=== PATIENT | female | born 1955 | race Caucasian/White ===

== ENCOUNTER 2019-12-02 09:32 | Emergency (ER) | payer BC, SELFPAY ==
[2019-12-02 09:37] VITALS: BP 188/99; PULSE 64; RESP 20; TEMP 36.7; O2SAT 98
[2019-12-02 09:43] LABS: Bilirubin Negative (Negative); Blood Negative (Negative); Clarity Clear (Clear); Glucose 100 mg/dL (Negative); Ketones Negative (Negative); Leukocyte Esterase Negative (Negative); Nitrite Positive (Negative); Specific Gravity 1.025 (1.005-1.025)
--- NOTE | 2019-12-02 09:43 | W.ED.GENAD ---
Discharge Plan Disposition Patient Disposition: HOME Condition: Stable Discharge Details Chief Complaint: FlankPain Clinical Impression: Kidney stone on right side Primary Care Provider: Shalonda,Local ED Provider: Nasima Phelan Home Meds and New Rx's Prescriptions: New ondansetron HCl [Zofran] 4 mg tablet 4 mg PO Q8H PRN (Reason: nausea and vomiting) Qty: 14 RF: 0 tamsulosin [Flomax] 0.4 mg capsule 0.4 mg PO DAILY Qty: 14 RF: 0 ibuprofen 800 mg tablet 800 mg PO TID PRN (Reason: pain) Qty: 20 RF: 0 Continued atorvastatin 80 mg Tablet 80 mg PO DAILY RF: 0 aspirin [Aspir-81] 81 mg Tablet,Delayed Release (Dr/Ec) 81 mg PO DAILY RF: 0 metoprolol tartrate 25 mg Tablet 25 mg PO BID RF: 0 Discharge Instructions Instructions: Kidney Stones (ED) Additional Instructions: Strain all urine. Follow up with Urology in 3-5 days for an appointment. Follow up with primary care provider in 3-5 days. Return to ED sooner if any worsening or concerns. Take medications as directed. Referrals: Mikie Beyer MD [ [facility] STAFF PHYSICIAN] - Medical Decision Making 1023: Patient re-evaluation, pain down to 6/10. Reports nausea improved. Patient being transported to CT at this time. 1049: Spoke with Radiologist Dr. Cintron, CT result as noted below. EXAM: CT RENAL COLIC WO CLINICAL HISTORY: right flank pain TECHNIQUE: COMPARISON: No exams were available for comparison FINDINGS: CT examination of the abdomen and pelvis was performed without contrast administration. Images obtained through the lung bases are unremarkable. Visualized portions of the liver appear intact. Spleen is unremarkable by noncontrast criteria as are the gallbladder and bile ducts. Pancreas is unremarkable. Abdominal aorta is of normal diameter. No significant abdominal wall hernia seen. No abdominal or pelvic adenopathy. Appendix is normal. No evidence of diverticulitis or bowel obstruction. Left kidney and ureter appear normal. No obstruction or calcification. On the right there is moderate hydronephrosis and hydroureter to the level of the ureterovesical junction where there is an apparent intramural 1-2 millimeter in diameter obstructing calculus. Urinary bladder is essentially empty Radio Recorder structures grossly unremarkable as visualized. IMPRESSION: Obstructing 1-2 millimeter in diameter ureterovesical junction calculus on the right. No additional urinary tract calcification. [id number]: Total DLP = 0.00 mGy-cm Ordered By: Nasima Phelan CC: Discussed CT results and home care with patient, verbalized understanding. Discussed prescriptions for Flomax and Zofran and ibuprofen. Verbalized understanding. Patient remained hemodynamically stable throughout stay. HPI General Date/Time Provider Initiated Documentation: 12/02/19 09:37. History of Present Illness 64 year old F presents to the emergency department with the chief complaint of Flank pain, described as moderate, with intensity rated at 8. Quality is described as stabbing, and is localized to the back (Right flank). Patient flank. Patient started experiencing this hour(s) (5) and it has been colicky. No relieving factors improve symptom(s), Patient notes fever/chills (chills) and nausea/vomiting. Patient did receive the following treatments prior to arrival, none Related Data Home Medications Medication Instructions Recorded Confirmed aspirin [Aspir-81] 81 mg PO DAILY 12/02/19 12/02/19 atorvastatin 80 mg PO DAILY 12/02/19 12/02/19 ibuprofen 800 mg PO TID PRN #20 tab 12/02/19 metoprolol tartrate 25 mg PO BID 12/02/19 12/02/19 ondansetron HCl [Zofran] 4 mg PO Q8H PRN #14 tab 12/02/19 tamsulosin [Flomax] 0.4 mg PO DAILY #14 cap 12/02/19 Previous Rx's Medication Instructions Recorded ibuprofen 800 mg PO TID PRN #20 tab 12/02/19 ondansetron HCl [Zofran] 4 mg PO Q8H PRN #14 tab 12/02/19 tamsulosin [Flomax] 0.4 mg PO DAILY #14 cap 12/02/19 Allergies Allergy/AdvReac Type Severity Reaction Status Date / Time No Known Allergies Allergy Unverified 12/02/19 09:42 General Stated Complaint: FlankPain SARITHA: 3 Review of Systems All systems reviewed & are unremarkable except as noted in HPI and below Constitutional Constitutional: Reports chills Respiratory Respiratory: Denies cough Gastrointestinal Gastrointestinal: Reports abdominal pain (mild RLQ), Denies diarrhea, Reports nausea and Reports vomiting Genitourinary Genitourinary: Denies dysuria and Reports flank pain PFSH Social History Smoking/Tobacco Use Status: Current every day Drug use: Never Substance use type: does not use Do you feel safe at home: Yes Do you feel safe in your relationship?: Yes Exam Const General: cooperative, healthy appearing and in distress (Uncomfortable) moderate Nutritional Appearance: average body habitus and well nourished Orientation: alert, awake and oriented x3 Chest Chest: normal inspection of the chest and no tenderness Resp Effort & Inspection: normal respiratory effort and able to speak in complete sentences Auscultation: clear to auscultation bilaterally, no rhonchi and no wheezes Cardio Rate: regular rate Rhythm: regular rhythm Heart Sounds: S1 normal and S2 normal GI Inspection: normal to inspection Palpation: soft, not firm, no guarding and tender suprapubicly General: CVA tenderness on the right Neuro General: alert, awake and oriented x3 Speech: speech normal Course Vital Signs Vital signs: Vital Signs Temperature 36.7 C 12/02/19 09:37 Pulse 64 12/02/19 09:37 Respiratory Rate 12/02/19 09:37 Blood Pressure 188/99 H 12/02/19 09:37 Pulse Oximetry 98 12/02/19 09:37 Temperature 36.7 C 12/02/19 09:37 Temperature Source Temporal Artery Scan 12/02/19 09:37 Pulse 64 12/02/19 09:37 Respiratory Rate 12/02/19 09:37 Blood Pressure 188/99 H 12/02/19 09:37 Blood Pressure Position Supine 12/02/19 09:37 Pulse Oximetry 98 12/02/19 09:37 Oxygen Delivery Method Room Air 12/02/19 09:37 Oxygen Flow Rate 0 12/02/19 09:37 Pain Level 8 12/02/19 09:37
[2019-12-02] MEDS: Ketorolac 30 MG/ML VIAL IVP (09:53)
[2019-12-02] MEDS: Normal Saline Flush 10 ML SYR IVP (09:53)
[2019-12-02] MEDS: Ondansetron 4 MG/2 ML VIAL IVP (09:53)
[2019-12-02] MEDS: Lactated Ringers 1,000 ML 200 ML IV (09:53)
[2019-12-02 09:54] LABS: Abs Immature Grans 0.03 k/cumm (0.0-0.09); Absolute Lymphocyte Count 1.62 k/cumm (1.2-3.4); Absolute Monocyte Count 0.42 k/cumm (0.11-0.7); Absolute Neutrophil Count 11.97 k/cumm (1.2-6.7); Basophils % 0.4; Eosinophils % 0.1; HCT 46.2 % (36.0-46.0); HGB 15.6 g/dL (12.0-15.5); Immature Grans % 0.2 %; Lymphocytes % 11.5; Mean Corp. HGB Concentration 33.8 g/dL (32.0-36.0); Mean Corpuscular Hemoglobin 30.1 pg (27.0-33.0); Mean Platelet Volume 8.9 fL (8.0-11.0); Neutrophils % 84.8; Platelet Count 294 x1000/uL (130-400); RBC 5.19 m/cumm (4.00-5.20); RBC Distribution Width 13.1 % (11.7-14.6); White Blood Cell Count 14.11 k/cumm (4.4-10.8)
[2019-12-02 09:55] LABS: Bacteria Rare HPF (Negative); C & S Indicated? Yes; Casts 0-2 Hyaline LPF (Negative); Crystals Negative HPF (Negative); Epithelial Cells Rare HPF (Negative); Mucus Trace (Negative)
[2019-12-02 09:57] LABS: Absolute Basophil Count 0.06 k/cumm (0.0-0.2); Absolute Eosinophil Count 0.01 k/cumm (0.0-0.7)
[2019-12-02 10:10] LABS: ALT 28 U/L (14-59); AST 22 U/L (15-37); Alkaline Phosphatase 91 U/L (46-116); Anion Gap 9.9 mmol/L (3-11); BUN 19 mg/dL (7-18); Bilirubin, Total 0.4 mg/dL (0.2-1.0); CO2 27.1 mmol/L (21.0-32.0); CREATININE 0.88 mg/dL (0.55-1.02); Calcium 9.5 mg/dL (8.5-10.1); Chloride 104 mmol/L (98-107); Glucose 174 mg/dL (74-106); Sodium 141 mmol/L (136-145); Total Protein 8.1 g/dL (6.4-8.2)
--- NOTE | 2019-12-02 10:34 | DI.CT_ITS ---
EXAM: CT RENAL COLIC WO CLINICAL HISTORY: right flank pain TECHNIQUE: COMPARISON: No exams were available for comparison FINDINGS: CT examination of the abdomen and pelvis was performed without contrast administration. Images obtai den through the lung bases are unremarkable. Visualized portions of the liver appear intact. Spleen is unremarkable by noncontrast criteria as are the gallbladder and bile ducts. Pancreas is unremark able. Abdominal aorta is of normal diameter. No significant abdominal wall hernia seen. No abdomin al or pelvic adenopathy. Appendix is normal. No evidence of diverticulitis or bowel obstruction. Left kidney and ureter appear normal. No obstruction or calcification. On the right there is moderate hydronephrosis and hydroureter to the level of the ureterovesical junc tion where there is an apparent intramural 1-2 millimeter in diameter obstructing calculus. Urinary bladder is essentially empty Technical Document Writer structures grossly unremarkable as visualized. IMPRESSION: Obstructing 1-2 millimeter in diameter ureterovesical junction calculus on the right. No additional urinary tract calcification.
[2019-12-02 11:38] VITALS: BP 144/80; PULSE 92; TEMP 37; O2SAT 98
== END 2019-12-02 11:43 | disposition home or self-care (01) ==
PROVIDERS: Emergency Provider Registered Nurse Emergency; PCP Internal Medicine
DX: N13.2 Hydronephrosis with renal and ureteral calculous obstruction (principal); N13.4 Hydroureter
CPT/HCPCS: 36415; 80053; 87077; 96361; 96374; 96375; 99284; 74176; 81003; 81015; 85025; 87086; J1885; J2405

== ENCOUNTER 2021-09-29 13:56 | Emergency (ER) | payer MEDICARE, SELFPAY ==
[2021-09-29 14:02] VITALS: BP 165/95; PULSE 106; RESP 16; TEMP 36.7; O2SAT 96
--- NOTE | 2021-09-29 15:30 | RT.EKG_ITS ---
APPROVED REPORT Exam: Resting ECG Reason for Exam: left shoulder pain Patient Location: E HR:95 bpm ECG Measurements Heart Rate 95 AXIS VT 150 P 50 QRSd 92 QRS 18 QT 349 T 56 QTc 440 Conclusion Sinus rhythm...normal P axis, V-rate 60- 99 Probable left atrial enlargement...P >50mS, <-0.10mV V1
--- NOTE | 2021-09-29 15:30 | DI.RAD_ITS ---
Exam(s) XR SHOULDER LT COMPLETE 2+V EXAM: XR SHOULDER LT COMPLETE 2+V CLINICAL HISTORY: left shoulder. TECHNIQUE: 2D digital imaging was performed. COMPARISON: No exams were available for comparison FINDINGS: No evidence of fracture or dislocation. No abnormal soft tissue calcifications. AC joint appears un remarkable. IMPRESSION: No significant radiograph findings in left shoulder. DATA REPOSITORY: RADIATION DOSE DELIVERED:
--- NOTE | 2021-09-29 16:34 | DI.VRAD_ITS ---
PROCEDURE INFORMATION: Exam: XR Left Shoulder Exam date and time: 09/29/2021 3:31 PM Age: 66 years old Clinical indication: Other: Left shoulder pain TECHNIQUE: Imaging protocol: XR Left shoulder. Views: 2 or more views. COMPARISON: No relevant prior studies available. FINDINGS: Bones/joints: Unremarkable for patient's age. Soft tissues: Unremarkable. IMPRESSION: No acute bony findings. If clinical symptoms persist recommend followup film in 7-10 days. Dictated and Authenticated by: Tina Florian MD. Ordering:EVELIN Jacobs MD
--- NOTE | 2021-09-29 16:53 | ED.GENADUL_ITS ---
Discharge Plan Disposition Patient Disposition: HOME Condition: Stable Discharge Details Clinical Impression: Acute pain of left shoulder Primary Care Provider: Colton Dan ED Provider: Arlene Sandoval Home Meds and New Rx's Prescriptions: New hydrocodone-acetaminophen 5-325 mg tablet 1 tab PO BID PRNQty: 7 RF: 0 Continued atorvastatin 80 mg Tablet 80 mg PO DAILY RF: 0 aspirin [Aspir-81] 81 mg Tablet,Delayed Release (Dr/Ec) 81 mg PO DAILY RF: 0 metoprolol tartrate 25 mg Tablet 25 mg PO BID RF: 0 ondansetron HCl [Zofran] 4 mg tablet 4 mg PO Q8H PRN (Reason: nausea and vomiting) Qty: 14 RF: 0 tamsulosin [Flomax] 0.4 mg capsule 0.4 mg PO DAILY Qty: 14 RF: 0 ibuprofen 800 mg tablet 800 mg PO TID PRN (Reason: pain) Qty: 20 RF: 0 Discharge Instructions Stand Alone Forms: Physical Therapy Referral Referrals: Colton Dan [Primary Care Provider] - Devin Alvarado MD [ [facility] STAFF PHYSICIAN] - Discharge Data Discharge Date/Time-TO BE ENTERED AT DEPARTURE: 09/29/21 17:09 Medical Decision Making Patient appears well, she has reproducible tenderness, x-ray does not show acute abnormality While this patient does have a cardiac history, she is having no chest pain or shortness of breath, her EKG is reassuring, and her exam is consistent with musculoskeletal pain Unfortunately patient was in the emergency room for an extended period of time given capacity issues of this hospital during - pandemic She became very frustrated at time of discharge asking why have you not performed an MRI I did relate to patient that this is not appropriate care for the emergency room, MRI is not a test that we typically performed in the emergency room for musculoskeletal complaints as there is no emergent intervention that would be done in the emergency room based on the results of these findings At time of reassessment she is stable for discharge home at this time She is made aware of she will need close outpatient follow-up, I have listed orthopedics, however she does reside in [place] so she may be best served by following up with her primary care physician for outpatient referral She is provided with a sling with precautions for frozen shoulder and this was discussed and patient expressed understanding I have supplied patient with 4 tablets of oxycodone which she may use sparingly, she is aware that the medication is addictive and she should not operate a vehicle 8 hours after taking this medication She is discharged home in stable condition with stable vitals, repeat pulse 92 There is no evidence of septic joint Low suspicion for cardiac referred pain given presentation and clinical exam findings today Medical Records Medical records reviewed: Yes I reviewed the patient's medical records. HPI General Mode of arrival: ambulatory . Date/Time Provider Initiated Documentation: 09/29/21 14:46 . Limitations to Documentation: no limitations . HPI Narrative: This 66-year-old female with past medical history of coronary artery disease presents with left shoulder pain which she has had for the past several months. She denies known injury to the affected area. She states that she had surgery on her right shoulder for similar pain several years ago. She states the pain is exacerbated with movement. Denies any fever or chills. Denies any chest pain or shortness of breath. Denies any associated sweating. Denies exertional pain. She states specifically moving the shoulder in any direction exacerbates comfort. She denies any radiation of pain or neck pain. She has been taking ice, Motrin, heat, and Tylenol without relief in her symptoms. She has not followed up with her doctor regarding the pain. Related Data Home Medications Medication Instructions Recorded Confirmed aspirin [Aspir-81] 81 mg PO DAILY 12/02/19 09/29/21 atorvastatin 80 mg PO DAILY 12/02/19 09/29/21 ibuprofen 800 mg PO TID PRN #20 tab 12/02/19 09/29/21 metoprolol tartrate 25 mg PO BID 12/02/19 09/29/21 ondansetron HCl [Zofran] 4 mg PO Q8H PRN #14 tab 12/02/19 09/29/21 tamsulosin [Flomax] 0.4 mg PO DAILY #14 cap 12/02/19 09/29/21 hydrocodone-acetaminophen 1 tab PO BID PRN #7 tab 09/29/21 Previous Rx's Medication Instructions Recorded ibuprofen 800 mg PO TID PRN #20 tab 12/02/19 ondansetron HCl [Zofran] 4 mg PO Q8H PRN #14 tab 12/02/19 tamsulosin [Flomax] 0.4 mg PO DAILY #14 cap 12/02/19 hydrocodone-acetaminophen 1 tab PO BID PRN #7 tab 09/29/21 Allergies Allergy/AdvReac Type Severity Reaction Status Date / Time No Known Allergies Allergy Unverified 09/29/21 14:07 General Stated Complaint: Orthopedic SARITHA: 4 Review of Systems All systems reviewed & are unremarkable except as noted in HPI and below PFSH Active Problem List (Updated 09/29/21 @ 16:52 by LYNN Cartwright) Acute pain of left shoulder (Acute) Social History Smoking/Tobacco Use Status: Current every day Tobacco Type: cigarettes Smoking risk assessment performed?: Yes Drug use: Never Substance use type: does not use Do you feel safe at home: Yes Do you feel safe in your relationship?: Yes Exam Const General: cooperative, comfortable and no acute distress HENMT Head: normal to inspection Neck Other: no midline tenderness Chest Chest: normal inspection of the chest Resp Effort & Inspection: normal respiratory effort Cardio Rate: regular rate Skin General skin exam: no rashes or lesions noted Neuro General: patient alert and patient oriented x3 Other: Strength of mentation intact distally Extrem Shoulder/upper arm images: 1. Reproducible tenderness, decreased abduction, supination, abduction Distal pulses intact Course Vital Signs Vital signs: Vital Signs Temperature 36.7 C 09/29/21 14:02 Pulse 106 H 09/29/21 14:02 Respiratory Rate 16 09/29/21 14:02 Blood Pressure 165/95 H 09/29/21 14:02 Pulse Oximetry 96 09/29/21 14:02 Temperature 36.7 C 09/29/21 14:02 Temperature Source Skin 09/29/21 14:02 Pulse 106 H 09/29/21 14:02 Respiratory Rate 16 09/29/21 14:02 Respiratory Effort Non-Labored 09/29/21 14:02 Blood Pressure 165/95 H 09/29/21 14:02 Blood Pressure Position Sitting 09/29/21 14:02 Pulse Oximetry 96 09/29/21 14:02 Oxygen Delivery Method Room Air 09/29/21 14:02 Oxygen Flow Rate 0 09/29/21 14:02 Pain Level 8 09/29/21 14:18
== END 2021-09-29 17:09 | disposition home or self-care (01) ==
PROVIDERS: Emergency Provider Physician Assistant; PCP Internal Medicine
DX: M25.512 Pain in left shoulder (principal)
CPT/HCPCS: 93005; 99284; 73030; 93010; 99283

== ENCOUNTER 2022-09-08 10:03 | Emergency (ER) | payer MEDICARE, SELFPAY ==
--- NOTE | 2022-09-08 10:00 | RT.EKG_ITS ---
APPROVED REPORT Exam: Resting ECG Reason for Exam: chest pain Patient Location: E HR:115 bpm ECG Measurements Heart Rate 115 AXIS MN 161 P 68 QRSd 80 QRS 4 QT 327 T 69 QTc 453 Conclusion Sinus tachycardia...rate> 99 Sinus. Normal axis. No STEMI. I have reviewed and interpreted ECG and agree with software generated interpretation.
[2022-09-08 10:07] VITALS: BP 154/71; PULSE 118; RESP 22; TEMP 36.5; O2SAT 95
--- NOTE | 2022-09-08 10:15 | DI.RAD_ITS ---
Exam(s) XR PORTABLE CHEST AP EXAM: XR PORTABLE CHEST AP CLINICAL HISTORY: R sided chest pain, r/o pneumothorax, acute dz TECHNIQUE: 2D digital imaging was performed of the chest. One image was obtained. An AP view was ob tained. COMPARISON: No exams were available for comparison FINDINGS: MEDIASTINUM: Normal. HEART: Normal. PULMONARY VASCULATURE: Normal. LUNGS: There is prominence of the right perihilar region. The left lung shows no focal consolidating infiltrates. PLEURAL SPACE: No pleural effusion or pneumothorax. BONE:Within normal limits for the patient's age. OTHER FINDINGS:Normal. IMPRESSION: Prominence of the right perihilar region. This may represent an infiltrate, but a central mass or ad enopathy cannot be excluded. CT scan of the chest with contrast is recommended for further evaluatio n. DATA REPOSITORY: RADIATION DOSE DELIVERED:
[2022-09-08 10:18] VITALS: RESP 23
--- NOTE | 2022-09-08 10:20 | ED.GENADUL_ITS ---
Discharge Plan Disposition Patient Disposition: HOME Condition: Improving Discharge Details Clinical Impression: Mass of right lung Primary Care Provider: Colton Dan ED Provider: Kimi Jo Home Meds and New Rx's Prescriptions: New oxycodone 5 mg tablet 5 mg PO Q6H PRN (Reason: pain) Qty: 10 0RF Continued atorvastatin 80 mg Tablet 80 mg PO DAILY aspirin [Aspir-81] 81 mg Tablet,Delayed Release (Dr/Ec) 81 mg PO DAILY metoprolol tartrate 25 mg Tablet 25 mg PO BID ondansetron HCl [Zofran] 4 mg tablet 4 mg PO Q8H PRN (Reason: nausea and vomiting) Qty: 14 0RF tamsulosin [Flomax] 0.4 mg capsule 0.4 mg PO DAILY Qty: 14 0RF ibuprofen 800 mg tablet 800 mg PO TID PRN (Reason: pain) Qty: 20 0RF hydrocodone-acetaminophen 5-325 mg tablet 1 tab PO BID PRNQty: 7 0RF No Action Stiolto Respimat 2.5-2.5 mcg/actuation mist 2 puff inhalation DAILY Qty: 4 0RF albuterol sulfate 90 mcg/actuation HFA aerosol inhaler 2 puff inhalation Q6H PRN (Reason: shortness of breath or wheezing) Qty: 8.5 0RF Discharge Instructions Instructions: Needle Biopsy (DC) Additional Instructions: Your CT scan imaging today revealed that you have a mass in your right lung. Medications have been sent electronically to your pharmacy from the pulmonoligist Dr. Manzo. A prescription for pain medication has been also sent electronically to your pharmacy to take as needed and directed for pain not relieved with Tylenol or ibuprofen. Use the Acapella secretion device as directed by respiratory therapy. You can call Dr. Manzo's office to follow-up on the referral that has been pl aced to [facility] for biopsy of your lung mass Return immediately to the emergency department if you develop any worsening or new concerning symptoms such as fever, worsening pain, difficulty breathing or any other concerns. Referrals: Emma Haynes MD [ [facility] STAFF PHYSICIAN] - Discharge Data Discharge Physician: Kimi Jo Medical Decision Making 1010 -- 67-year-old female with history of coronary artery disease and 1 coronary artery stent, hypertension, hyperlipidemia, diet-controlled diabetes and chronic tobacco smoking presents for substernal right-sided chest pain since awakening this morning 4 hours ago. EKG on arrival notes a rate of 115, sinus, no STEMI. Her oxygen saturation is low to mid 90s on room air. Her heart rate is regular and in the 110s. She has slightly diminished breath sounds right chest. No lower extremity edema. She appears uncomfortable with deep breath. Differential diagnosis includes PE, pneumothorax, COVID. History and presentation does not appear consistent with ACS or dissection. Considering her age and history, will obtain screening labs, plan for repeat troponin, portable chest x-ray and reassess. 1035 -- chest x-ray notes a questionable consolidation right middle lobe but no obvious pneumothorax, will proceed with CT chest. 1215 -- CT chest notes any central right perihilar mass suspicious for neoplasm with resultant obstruction of right upper and right middle lobe bronchi and right pulmonary vasculature. There is also peripheral infiltrates seen in the right middle and right upper lobe which may represent atelectasis or pneumonia. She has no report of productive cough or fever. Her white blood cell count is 13. Presentation does not appear consistent with pneumonia at this time. Results discussed with patient and she states she is not surprised with her history of smoking. She is from [place] but is staying here until . Her oxygen saturation is 94% on Case discussed with Dr. Manzo's reviewed CT angio discussed treatment options, plan going forward. 1315 --patient evaluated by Dr. Manzo at bedside. She is recommending Acapella device to help with secretions. Dr. Manzo will place an urgent referral for evaluation and biopsy at [facility]. Patient feels comfortable and would like to go home. She had a brief episode of nausea and states she had not eaten. Patient was able to eat and monitored a little while longer. She briefly had decrease in her oxygen saturation to 89%on RA after nausea and this improved to 94% on room air. Patient felt comfortable going home. Medical Records Medical records reviewed: Yes I reviewed the patient's medical records. Imaging Data Radiologic Study: Radiologist's impression: XR PORTABLE CHEST AP CLINICAL HISTORY:? R sided chest pain, r/o pneumothorax, acute dz TECHNIQUE:? 2D digital imaging was performed of the chest. One image was obtained.? An AP view was obtained. COMPARISON:? No exams were available for comparison FINDINGS: MEDIASTINUM: Normal.? HEART: Normal. PULMONARY VASCULATURE: Normal. LUNGS: There is prominence of the right perihilar region.? The left lung shows no focal consolidating infiltrates. ? PLEURAL SPACE: No pleural effusion or pneumothorax. BONE:Within normal limits for the patient's age. OTHER FINDINGS:Normal.? IMPRESSION: Prominence of the right perihilar region.? This may represent an infiltrate, but a central mass or adenopathy cannot be excluded.? CT scan of the chest with contrast is recommended for further evaluation.? CT CHEST PE CTA CLINICAL HISTORY: ? substernal/R sided chest pain, r/o PE. TECHNIQUE:? Imaging Protocol:? Axial CT angiography was performed with multi- slice acquisition and multi-planar and/or 3D reconstructions. CONTRAST MATERIAL:? Intravenous: Omnipaque 350 contrast volume:72 mL COMPARISON:? CT CT RENAL COLIC WO from 12/02/2019 FINDINGS: Tracheobronchial tree: There is a central right perihilar mass measuring at least 4 x 3.1 cm.? It is obstructing both the right upper and right middle lobe bronchi.? There is also narrowing of the right pulmonary artery branches to the right upper, middle and lower lobes.? In addition, there is narrowing of the pulmonary veins.? The findings are most suspicious for neoplasm.? Postobstructive atelectatic changes are seen in the right upper and lower lobes.? There are peripheral opacities in the right middle lobe and the right upper lobe which may represent pneumonia or atelectasis.? Emphysematous changes are seen in the lungs.? There is dependent atelectasis in the lung bases.? There are enlarged mediastinal lymph nodes. Pulmonary Arteries: No evidence of filling defect to suggest pulmonary emboli. Mediastinum and Chichi: The esophagus is grossly unremarkable.? Visualized thyroid gland: Unremarkable.? Pleura: No effusion or pneumothorax. Heart: The heart is not dilated. Moderate coronary artery calcification is present.? No pericardial effusion.? Aorta: Thoracic aorta non-dilated. No evidence of dissection. Atherosclerosis is present. Upper abdomen:? Unremarkable. Soft tissues: Unremarkable.? Bones: Within normal limits for the patient's age.No aggressive osseous lesions are identified. IMPRESSION: 1. No evidence of pulmonary embolism, thoracic aortic dissection or aneurysm. 2. Central right perihilar mass suspicious for neoplasm.? There is resultant obstruction of right upper and right middle lobe bronchi and right pulmonary vasculature. 3. Peripheral infiltrates are seen in the right middle and right upper lobes which may represent atelectasis and/or pneumonia. 4. Enlarged mediastinal lymph nodes are present. 5. Findings were discussed with Dr. Jo at 11:50 a.m. on 09/08/2022. Lab Data Lab results reviewed: Yes I reviewed the patient's lab results. Labs: Laboratory Tests Range/Units 09/08/22 09/08/22 09/08/22 10:15 10:15 10:15 WBC (4.4-10.8) 10^3/uL 13.88 H RBC (3.93-5.22) 10^6/uL 5.67 H Hgb (11.2-15.7) g/dL 16.3 H Hct (36.0-46.0) % 50.1 H MCV (80-95) fL 88 MCH (27.0-33.0) pg 28.7 MCHC (32.0-36.0) % 32.5 RDW (11.7-14.6) % 12.4 Plt Count (130-400) 10^3/uL 280 MPV (8.0-11.0) fL 8.9 Immature Gran % 0.5 Neutrophils % 68.1 Lymphocytes % 21.3 Monocytes % 8.0 Eosinophils % 1.4 Basophils % 0.7 Nucleated RBC % (0.0-0.3) % 0.0 Absolute Neutrophils (1.2-6.7) 10^3/uL 9.45 H Absolute Lymphocytes (1.2-3.4) 10^3/uL 2.96 Absolute Monocytes (0.1-0.8) 10^3/uL 1.11 H Absolute Eosinophils (0.0-0.7) 10^3/uL 0.19 Absolute Basophils (0.0-0.2) 10^3/uL 0.10 PT (9.3-11.0) sec 9.4 INR (0.9-1.1) 0.9 APTT (21.0-27.5) sec 26.7 Sodium (136-145) mmol/L 134 L Potassium (3.5-5.1) mmol/L 3.7 Chloride (98-107) mmol/L 97 L Carbon Dioxide (21.0-32.0) mmol/L 26.6 Anion Gap (3-11) mmol/L 10.4 BUN (7-18) mg/dL 18 Creatinine (0.55-1.02) mg/dL 1.1 H Est GFR (CKD-EPI 2020) (mL/min/1.73m2) 55.42 Glucose (74-106) mg/dL 150 H Calcium (8.5-10.1) mg/dL 9.7 Magnesium (1.8-2.4) mg/dL 2.0 Total Bilirubin (0.2-1.0) mg/dL 0.8 AST (15-37) U/L 30 ALT (14-59) U/L 26 Alkaline Phosphatase (46-116) U/L 88 Troponin I (<or=60) ng/L < 50 Total Protein (6.4-8.2) g/dL 9.1 H Albumin (3.4-5.0) g/dL 3.5 COVID-19 Source SARS-CoV-2 (PCR) (Negative) Range/Units 09/08/22 09/08/22 10:17 13:13 WBC (4.4-10.8) 10^3/uL RBC (3.93-5.22) 10^6/uL Hgb (11.2-15.7) g/dL Hct (36.0-46.0) % MCV (80-95) fL MCH (27.0-33.0) pg MCHC (32.0-36.0) % RDW (11.7-14.6) % Plt Count (130-400) 10^3/uL MPV (8.0-11.0) fL Immature Gran % Neutrophils % Lymphocytes % Monocytes % Eosinophils % Basophils % Nucleated RBC % (0.0-0.3) % Absolute Neutrophils (1.2-6.7) 10^3/uL Absolute Lymphocytes (1.2-3.4) 10^3/uL Absolute Monocytes (0.1-0.8) 10^3/uL Absolute Eosinophils (0.0-0.7) 10^3/uL Absolute Basophils (0.0-0.2) 10^3/uL PT (9.3-11.0) sec INR (0.9-1.1) APTT (21.0-27.5) sec Sodium (136-145) mmol/L Potassium (3.5-5.1) mmol/L Chloride (98-107) mmol/L Carbon Dioxide (21.0-32.0) mmol/L Anion Gap (3-11) mmol/L BUN (7-18) mg/dL Creatinine (0.55-1.02) mg/dL Est GFR (CKD-EPI 2020) (mL/min/1.73m2) Glucose (74-106) mg/dL Calcium (8.5-10.1) mg/dL Magnesium (1.8-2.4) mg/dL Total Bilirubin (0.2-1.0) mg/dL AST (15-37) U/L ALT (14-59) U/L Alkaline Phosphatase (46-116) U/L Troponin I (<or=60) ng/L Cancelled Total Protein (6.4-8.2) g/dL Albumin (3.4-5.0) g/dL COVID-19 Source Nasal/Nares SARS-CoV-2 (PCR) (Negative) Negative ECG Data Attestation: I personally reviewed and interpreted this ECG (s) as follows: Interpretation: rate of 115, sinus, normal axis, no stemi. HPI General Mode of arrival: ambulatory . Date/Time Provider Initiated Documentation: 09/08/22 10:04 . Limitations to Documentation: no limitations . Information obtained by: patient . HPI Narrative: Patient is a 67-year-old female w/ a h/o coronary artery disease, hypertension, hyperlipidemia, diet-controlled diabetes who presents with substernal and slightly right-sided sharp chest pain for the past 4 hours that she noted upon awaking from sleep. Patient states the pain is worse with deep breath. She admits to some intermittent dizziness she denies any fever, cough, nausea, vomiting. She states she took 2 aspirin at home today prior to arrival. She denies any known injury or lower extremity swelling. Related Data Home Medications Medication Instructions Recorded Confirmed aspirin 81 mg tablet,delayed 81 mg PO DAILY 12/02/19 09/08/22 release (Aspir-) atorvastatin 80 mg tablet 80 mg PO DAILY 12/02/19 09/08/22 ibuprofen 800 mg tablet 800 mg PO TID PRN pain #20 tabs 12/02/19 09/29/21 metoprolol tartrate 25 mg tablet 25 mg PO BID 12/02/19 09/08/22 ondansetron HCl 4 mg tablet 4 mg PO Q8H PRN nausea and 12/02/19 09/29/21 (Zofran) vomiting #14 tabs tamsulosin 0.4 mg capsule (Flomax) 0.4 mg PO DAILY #14 caps 12/02/19 09/29/21 hydrocodone 5 mg-acetaminophen 325 1 tab PO BID PRN #7 tabs 09/29/21 mg tablet albuterol sulfate 90 mcg/actuation 2 puff inhalation Q6H PRN 09/08/22 aerosol inhaler shortness of breath or wheezing #8.5 grams oxycodone 5 mg tablet 5 mg PO Q6H PRN pain #10 tabs 09/08/22 tiotropium 2.5 mcg-olodaterol 2.5 2 puff inhalation DAILY #4 grams 09/08/22 mcg/actuation mist for inhalation (Stiolto Respimat) Previous Rx's Medication Instructions Recorded ibuprofen 800 mg tablet 800 mg PO TID PRN pain #20 tabs 12/02/19 ondansetron HCl 4 mg tablet 4 mg PO Q8H PRN nausea and 12/02/19 (Zofran) vomiting #14 tabs tamsulosin 0.4 mg capsule (Flomax) 0.4 mg PO DAILY #14 caps 12/02/19 hydrocodone 5 mg-acetaminophen 325 1 tab PO BID PRN #7 tabs 09/29/21 mg tablet albuterol sulfate 90 mcg/actuation 2 puff inhalation Q6H PRN 09/08/22 aerosol inhaler shortness of breath or wheezing #8.5 grams oxycodone 5 mg tablet 5 mg PO Q6H PRN pain #10 tabs 09/08/22 tiotropium 2.5 mcg-olodaterol 2.5 2 puff inhalation DAILY #4 grams 09/08/22 mcg/actuation mist for inhalation (Stiolto Respimat) Allergies Allergy/AdvReac Type Severity Reaction Status Date / Time No Known Allergies Allergy Unverified 09/29/21 14:07 General Stated Complaint: Chest Pain SARITHA: 2 Review of Systems All systems reviewed & are unremarkable except as noted in HPI and below Constitutional Constitutional: Reports as per HPI, Denies chills and Denies fever(s) Eyes Eyes: Denies blurry vision ENT Ears, Nose, Mouth, and Throat: Denies dizziness, Denies sore throat and Denies throat swelling Cardiovascular Cardiovascular: Reports chest pain and Reports dyspnea Respiratory Respiratory: Denies cough and Reports dyspnea Gastrointestinal Gastrointestinal: Denies abdominal pain, Denies diarrhea and Denies vomiting Genitourinary Genitourinary: Denies hematuria and Denies dysuria Musculoskeletal Musculoskeletal: Denies back pain and Denies numbness Integumentary/Breasts Skin/Breast: Denies lesions and Denies rash Neurologic Neurologic: Denies dizziness, Denies localized weakness and Denies numbness Allergic/Immunologic Allergic/Immunologic: Denies throat swelling PFSH All Active Problems (Updated 09/08/22 @ 13:58 by Emma Haynes MD) Atelectasis (Acute) Mediastinal lymphadenopathy (Acute) Mass of right lung (Acute) Acute pain of left shoulder (Acute) Medical History (Updated 09/08/22 @ 13:58 by Emma Haynes MD) Coronary artery disease Diabetes HTN (hypertension) Hx of hyperlipidemia Surgical History (Updated 09/08/22 @ 10:24 by Kimi Jo DO) H/O section History of coronary artery stent placement Social History Smoking/Tobacco Use Status: Current every day Tobacco Type: cigarettes Smoking risk assessment performed?: Yes Drug use: Never Substance use type: does not use Do you feel safe at home: Yes Do you feel safe in your relationship?: Yes Exam Const General: cooperative and uncomfortable Orientation: alert, awake and oriented x3 HENMT Head: normal to inspection Face and sinus: normal facial exam Eyes General: appearance normal, both eyes and all related structures Pupils: PERRL EOM: EOM intact bilaterally Neck Neck: normal visual inspection and No submandibular swelling Lymphatic: no lymphadenopathy noted Chest Chest: normal inspection of the chest and no tenderness Resp Effort & Inspection: normal respiratory effort and able to speak in complete sentences Auscultation: diminished lung sounds on the right throughout Cardio Rate: tachycardic Rhythm: regular rhythm GI Inspection: normal to inspection Palpation: soft, not firm, not rigid and nontender Auscultation: normal bowel sounds Back/Spine/Pelvis Thoracic/Lumbar Spine: thoracic and lumbar spine normal to inspection Pelvis: no pain with anterior-posterior compression Skin General skin exam: no rashes or lesions noted Neuro General: patient alert, patient awake and patient oriented x3 Cognition: normal cognition Speech: speech normal Motor: muscle tone normal throughout Sensory Exam: no sensory deficits noted Extrem General: normal to inspection, full ROM, capillary refill normal, no calf tenderness bilaterally and no edema Psych Appearance: grossly normal Mental Status: mental status grossly normal Speech and Movement: speech and movement normal Affect: normal affect Course Vital Signs Vital signs: Vital Signs Pulse 118 H 09/08/22 10:07 Respiratory Rate 22 09/08/22 10:07 Blood Pressure 154/71 H 09/08/22 10:07 Pulse Oximetry 95 09/08/22 10:07 Pulse 118 H 09/08/22 10:07 Respiratory Rate 22 09/08/22 10:07 Blood Pressure 154/71 H 09/08/22 10:07 Blood Pressure Position Supine 09/08/22 10:07 Pulse Oximetry 95 09/08/22 10:07 Oxygen Delivery Method Room Air 09/08/22 10:07 Oxygen Flow Rate 0 09/08/22 10:07 Pain Level 8 09/08/22 10:07
[2022-09-08 10:24] LABS: Abs Immature Grans 0.07 10^3/uL (0.0-0.06); Absolute Eosinophil Count 0.19 10^3/uL (0.0-0.7); Absolute Lymphocyte Count 2.96 10^3/uL (1.2-3.4); Absolute Monocyte Count 1.11 10^3/uL (0.1-0.8); Absolute Neutrophil Count 9.45 10^3/uL (1.2-6.7); Basophils % 0.7; Eosinophils % 1.4; HCT 50.1 % (36.0-46.0); HGB 16.3 g/dL (11.2-15.7); Immature Grans % 0.5; Lymphocytes % 21.3; MCH 28.7 pg (27.0-33.0); MCHC 32.5 % (32.0-36.0); MCV 88 fL (80-95); MPV 8.9 fL (8.0-11.0); Neutrophils % 68.1; Platelet Count 280 10^3/uL (130-400); RBC 5.67 10^6/uL (3.93-5.22); RDW 12.4 % (11.7-14.6); RDW-SD 40.5 fL; WBC 13.88 10^3/uL (4.4-10.8)
[2022-09-08 10:27] LABS: Source Nasal/Nares
--- NOTE | 2022-09-08 10:30 | DI.CT_ITS ---
Exam(s) CT CHEST PE CTA EXAM: CT CHEST PE CTA CLINICAL HISTORY: substernal/R sided chest pain, r/o PE. TECHNIQUE: Imaging Protocol: Axial CT angiography was performed with multi-slice acquisition and mu lti-planar and/or 3D reconstructions. CONTRAST MATERIAL: Intravenous: Omnipaque 350 contrast volume:72 mL COMPARISON: CT CT RENAL COLIC WO from 12/02/2019 FINDINGS: Tracheobronchial tree: There is a central right perihilar mass measuring at least 4 x 3.1 cm. It is obstructing both the right upper and right middle lobe bronchi. There is also narrowing of the right pulmonary artery branches to the right upper, middle and lower lobes. In addition, there is narrowi ng of the pulmonary veins. The findings are most suspicious for neoplasm. Postobstructive atelectat ic changes are seen in the right upper and lower lobes. There are peripheral opacities in the right middle lobe and the right upper lobe which may represent pneumonia or atelectasis. Emphysematous norm nges are seen in the lungs. There is dependent atelectasis in the lung bases. There are enlarged me diastinal lymph nodes. Pulmonary Arteries: No evidence of filling defect to suggest pulmonary emboli. Mediastinum and Chichi: The esophagus is grossly unremarkable. Visualized thyroid gland: Unremarkable. Pleura: No effusion or pneumothorax. Heart: The heart is not dilated. Moderate coronary artery calcification is present. No pericardial e ffusion. Aorta: Thoracic aorta non-dilated. No evidence of dissection. Atherosclerosis is present. Upper abdomen: Unremarkable. Soft tissues: Unremarkable. Bones: Within normal limits for the patient's age.No aggressive osseous lesions are identified. IMPRESSION: 1. No evidence of pulmonary embolism, thoracic aortic dissection or aneurysm. 2. Central right perihilar mass suspicious for neoplasm. There is resultant obstruction of right upp er and right middle lobe bronchi and right pulmonary vasculature. 3. Peripheral infiltrates are seen in the right middle and right upper lobes which may represent atel ectasis and/or pneumonia. 4. Enlarged mediastinal lymph nodes are present. 5. Findings were discussed with Dr. Jo at 11:50 a.m. on 09/08/2022. RADIATION DOSE DELIVERED: 260.58mGy.cm Total DLP DATA REPOSITORY: All CT scans at this facility are submitted to the National Radiology Data Registry (NRDR) Dose Index Registry (DIR) with the [employer] ([employer]). RADIATION OPTIMIZATION: All CT scans at this facility use at least one of these dose optimization te chniques: automated exposure control; mA and/or kV adjustment per patient size (includes targeted exa ms where dose is matched to clinical indication); or iterative reconstruction.
[2022-09-08 10:39] LABS: ALT 26 U/L (14-59); AST 30 U/L (15-37); Albumin 3.5 g/dL (3.4-5.0); Alkaline Phosphatase 88 U/L (46-116); Anion Gap 10.4 mmol/L (3-11); BUN 18 mg/dL (7-18); Bilirubin, Total 0.8 mg/dL (0.2-1.0); CO2 26.6 mmol/L (21.0-32.0); CREATININE 1.1 mg/dL (0.55-1.02); Calcium 9.7 mg/dL (8.5-10.1); Chloride 97 mmol/L (98-107); Estimated GFR 55.42 (mL/min/1.73m2); Glucose 150 mg/dL (74-106); Potassium 3.7 mmol/L (3.5-5.1); Sodium 134 mmol/L (136-145); Total Protein 9.1 g/dL (6.4-8.2); Troponin I < 50 ng/L (<or=60)
[2022-09-08] MEDS: MORPHine 4 MG/ML SYR IVP (10:49)
[2022-09-08 10:51] LABS: INR 0.9 (0.9-1.1); PTT Activated 26.7 sec (21.0-27.5); Prothrombin Time 9.4 sec (9.3-11.0)
[2022-09-08] MEDS: Normal Saline 1,000 ML 1000 ML IV (10:58)
[2022-09-08 11:05] LABS: COVID-19 PCR Negative (Negative)
[2022-09-08] MEDS: Ondansetron 4 MG/2 ML VIAL IVP (11:08)
[2022-09-08] MEDS: Omnipaque 350 MG/ML 100 ML BTL IJ (11:28)
[2022-09-08] MEDS: HYDROmorphone 2 MG/ML SYR 1 MG IVP (13:30)
--- NOTE | 2022-09-08 13:30 | W.PULMCON ---
General Date Of Service Date of service: 09/08/22 Time of Service: 13:30 Reason for Consult: Lung Mass Assessment and Plan Assessment and plan (1) Mass of right lung: Status: Acute (2) Mediastinal lymphadenopathy: Status: Acute (3) Atelectasis: Status: Acute Assessment and plan: This is a 67 yo female with a significant smoking history who is found to have a 4cm right proximal lung mass. There is complete compression of the RUL bronchus and significant compression of the RML bronchus with post obstructive atelectasis present. There is also significant mediastinal LAD seen. I felt left suprascapular fullness, but I cannot see if there is LAD based o nthe current CT scan. The read also notes some compression of the pulmonary vasculature on the right. She had nodules that were being followed pre-pandemic but has since been lost to follow up. I do not have these other scans so am unsure if one of the nodules was in the location of the current mass of not. With the masses location, I do worry about a small cell lung cancer. Since the airway is compressed I do think she should be seen relatively urgently at [facility] [place] by my Interventionalist colleagues to evaluate for both tissue biopsy as well as the potential need for airway stenting. She is stable and does not have a clear need for inpatient care, so I will send an urgent referral to [facility] [place]. I will also give her a VibraPEP to use for airway clearance and will prescribe a month of Stiolo and albuterol for her suspected COPD. She has plans to go back to [place] in about a month but I do think the airway compression needs intervention before heading back. She is also interested in starting the process and finding out the diagnosis with future plans to transfer care to [place]. RUL lung mass - [facility] [place] IP referral - consideration of stent and tissue biopsy - will likely need PET and MRI brain but will defer timing to [facility] [place] - VibraPEP to help with mucus clearance Presumed COPD - Stiolto and albuterol prescribed for her History of Present Illness Narrative: This is a 67 yo woman with at least a 40 pack year smoking history who presented to the ED for pleuritic chest pains. She tells me she is from [place] and is in [place] for only another month. She has a significant smoking history but says she has never been diagnosed with COPD. She used to be on inhalers, but her water ski assembler has retired and she has not seen another and her prescriptions . She also tells me that her water ski assembler had been following a few nodules but she has not have any scans since pre-pandemic. She cannot recall exactly where the chest CT's took place but think it may have been at a private imaging center. She primarily complains of pleuritic chest pain on the right directly in the location of this mass that was found. She denies hemoptysis but does say she has been coughing and has had alot more mucus, albeit clear, than usual. She does not think she has had unexplained weight loss but does not that her appetite has not been great recently. She is on room air in the ED saturating 94%. Review of Systems All systems reviewed & are unremarkable except as noted in HPI and below PFSH All Active Problems (Updated 09/08/22 @ 13:58 by Emma Haynes MD) Atelectasis (Acute) Mediastinal lymphadenopathy (Acute) Mass of right lung (Acute) Acute pain of left shoulder (Acute) Medical History (Updated 09/08/22 @ 13:58 by Emma Haynes MD) Coronary artery disease Diabetes HTN (hypertension) Hx of hyperlipidemia Surgical History (Updated 09/08/22 @ 10:24 by Kimi Jo DO) H/O section History of coronary artery stent placement Social History Smoking/Tobacco Use Status: Current every day Tobacco Type: cigarettes Smoking risk assessment performed?: Yes Drug use: Never Substance use type: does not use Do you feel safe at home: Yes Do you feel safe in your relationship?: Yes Visit Medication and Allergies Active Medications Generic Name Dose Route Start Last Admin Trade Name Freq PRN Reason Stop Dose Admin Iohexol 100 ml 09/08/22 11:30 09/08/22 11:28 Omnipaque 350 Mg/Ml 100 Ml Btl IJ 10/08/22 23:59 100 ml DIRECTED DERRICK Administration Allergies No Known Allergies Allergy (Unverified 09/29/21 14:07) Exam Narrative Exam Narrative: Gen: NAD, normal respiratory effort, well-nourished HENT: PERRL, no submandibular or vervical chain LAD. There is fullness in the left supraclaviluar region, however I cannot say if there is any LAD on the scan in this area. Chest: No respiratory distress, normal appearance of chest, clear to auscultation bilaterally, no crackles or wheezes, normal inspiratory effort Heart: regular rate and rhythym, no murmurs, rubs or gallops Abdomen: Non-distended, soft, non tender Extremities: No clubbing, edema, cyanosis, rashes Neuro: AAOx3 , non focal Psych: cooperative, appropriate mental affect Results Last Vital Signs Temp 36.5 C 09/08/22 10:07 Pulse 118 H 09/08/22 10:07 Resp 23 09/08/22 10:18 BP 154/71 H 09/08/22 10:07 Pulse Ox 95 09/08/22 10:07 Labs Result diagrams: 09/08/22 10:15 09/08/22 10:15 Labs: Laboratory Results - last 24 hr 09/08/22 09/08/22 09/08/22 10:15 10:15 10:15 WBC 13.88 H RBC 5.67 H Hgb 16.3 H Hct 50.1 H MCV 88 MCH 28.7 MCHC 32.5 RDW 12.4 Plt Count 280 MPV 8.9 Immature Gran % 0.5 Neutrophils % 68.1 Lymphocytes % 21.3 Monocytes % 8.0 Eosinophils % 1.4 Basophils % 0.7 Nucleated RBC % 0.0 Absolute Neutrophils 9.45 H Absolute Lymphocytes 2.96 Absolute Monocytes 1.11 H Absolute Eosinophils 0.19 Absolute Basophils 0.10 PT 9.4 INR 0.9 APTT 26.7 Sodium 134 L Potassium 3.7 Chloride 97 L Carbon Dioxide 26.6 Anion Gap 10.4 BUN 18 Creatinine 1.1 H Est GFR (CKD-EPI 2020) 55.42 Glucose 150 H Calcium 9.7 Magnesium 2.0 Total Bilirubin 0.8 AST 30 ALT 26 Alkaline Phosphatase 88 Troponin I < 50 Total Protein 9.1 H Albumin 3.5 COVID-19 Source SARS-CoV-2 (PCR) 09/08/22 09/08/22 10:17 13:13 WBC RBC Hgb Hct MCV MCH MCHC RDW Plt Count MPV Immature Gran % Neutrophils % Lymphocytes % Monocytes % Eosinophils % Basophils % Nucleated RBC % Absolute Neutrophils Absolute Lymphocytes Absolute Monocytes Absolute Eosinophils Absolute Basophils PT INR APTT Sodium Potassium Chloride Carbon Dioxide Anion Gap BUN Creatinine Est GFR (CKD-EPI 2020) Glucose Calcium Magnesium Total Bilirubin AST ALT Alkaline Phosphatase Troponin I Cancelled Total Protein Albumin COVID-19 Source Nasal/Nares SARS-CoV-2 (PCR) Negative Imaging Chest x-ray: report reviewed and image reviewed CT scan - chest: report reviewed and image reviewed
[2022-09-08 13:42] VITALS: BP 166/66; PULSE 85; O2SAT 84
[2022-09-08 13:54] VITALS: PULSE 90; RESP 25; O2SAT 94
--- NOTE | 2022-09-08 16:12 | NUR.NOTE ---
patient was advised by this comic book writer and provider not to drive home r/t the medication types she was given during ED stay. Patient understood teaching and verbalized that she is going to call a neighbor to come and get her to have a ride home.
== END 2022-09-08 15:31 | disposition home or self-care (01) ==
PROVIDERS: Emergency Provider Physician Assistant; PCP Internal Medicine
DX: R91.8 Other nonspecific abnormal finding of lung field (principal); R59.0 Localized enlarged lymph nodes; J98.11 Atelectasis; I10 Essential (primary) hypertension; E11.9 Type 2 diabetes mellitus without complications; F17.210 Nicotine dependence, cigarettes, uncomplicated; Z20.822 Contact with and (suspected) exposure to COVID-19
CPT/HCPCS: 71275; 80053; 87635; 93005; 96361; 96374; 96375; 99284; 99285; 71045; 83735; 84484; 85025; 85610; 85730; 93010; 94667; J1170; J2270; J2405; J3490